=== PATIENT | female | born 1970 ===

== ENCOUNTER → 2024-01-15 12:26 | Outpatient (ROUT) | payer OTHER, SELFPAY ==
[2024-01-15 13:08] LABS: COVID-19 CEPHEID 4-PLEX PCR Negative (Negative); Influenza A - CEPHEID Flu A NEGATIVE (NEGATIVE); Influenza B - CEPHEID Flu B NEGATIVE (NEGATIVE); Respiratory Syncytial Virus Negative (Negative)
== END ==
PROVIDERS: Visit Provider Registered Nurse
DX: R05.1 Acute cough (principal)
CPT/HCPCS: 0241U